=== PATIENT | female | born 1970 | race Caucasian/White ===

== ENCOUNTER → 2017-10-12 | Outpatient (CLI) | payer BC ==
[~2017-10-12] MED LIST: HYDR-79 PO; PROM25SU32 RC; SUMA100T3 PO
--- NOTE | 2017-10-12 16:31 | RAD ---
Pelvic ultrasound, 10/12/2017: History: Dysfunctional uterine bleeding Transabdominal and transvaginal scans were obtained. The uterus was best demonstrated on the transvaginal scans. It measures 9.2 x 5.7 x 4.9 cm. It is anteflexed. The central uterine echo complex measures 11 mm in greatest AP dimension. A small 1.6 cm hypoechoic myometrial nodule was seen anteriorly, suggesting a small uterine fibroid. The ovaries were difficult to visualize. They appear to be of normal size. No adnexal mass is seen. No free fluid is evident in the pelvis. IMPRESSION: 1. Mild nonspecific thickening of the central uterine echo complex. 2. Probable small uterine fibroid.
== END | disposition home or self-care (01) ==
LOC: US 13:05
PROVIDERS: ATTEND Nurse Practitioner Family
DX: N93.8 Other specified abnormal uterine and vaginal bleeding (principal)
CPT/HCPCS: 76830; 76856

== ENCOUNTER 2017-10-14 19:56 | Emergency (ER) | payer BC ==
[~2017-10-14] VITALS: Ht 165.1 cm; Wt 108.9 kg
[2017-10-14] MEDS ORDERED: VALPROATE SODIUM 500 MG in IV NORMAL SALINE 50ML 50 ML IV STA (20:17)
[2017-10-14] MEDS ORDERED: diphenhydrAMINE 50 MG/ML VIAL IV ONE (20:30)
[2017-10-14] MEDS ORDERED: ONDANSETRON PF 4 MG/2 ML VIAL. IV ONE (20:30)
[2017-10-14] MEDS ORDERED: IV RINGERS SOLUTION,LACTATED 1,000 ML IV SCH (20:30)
[2017-10-14] MEDS ORDERED: SUMAtriptan. 6 MG/0.5 ML VIAL SQ ONE (20:30)
--- NOTE | 2017-10-14 21:00 | ED.ADGEN ---
Past History Past Medical History: Migraines Adult General Chief Complaint Chief Complaint ".. I am having one of my typical migraine headaches.." HPI HPI Patient is a 47 year old female who presents with above hx and complaints of migraine. Patient is normally takes Tylenol or ibuprofen for her migraine headaches which resolved promptly. However tonight headache is been more persistent. No history of fever. No history immunosuppression. No history of travel. No history of trauma. No history of specific ill contacts. She does have some photophobia. Patient describes pain is much more severe than previous migraine headaches. Patient still has CT of her head. Patient states previously when headaches are this bad she has taken injections of Toradol IV and migraine headache cocktail's. Migraines sometimes appear to be associated with weather changes. Review of Systems Review of Systems Constitutional: Denies fever or chills [] Eyes: Denies change in visual acuity, redness, or eye pain []complaints of photophobia HENT: Denies nasal congestion or sore throat [] Respiratory: Denies cough or shortness of breath [] Cardiovascular: No additional information not addressed in HPI [] GI: Denies abdominal pain, nausea, vomiting, bloody stools or diarrhea [] : Denies dysuria or hematuria [] Musculoskeletal: Denies back pain or joint pain [] Integument: Denies rash or skin lesions [] Neurologic: Complaints of headache,. Denies focal weakness or sensory changes [] Endocrine: Denies polyuria or polydipsia [] All other systems were reviewed and found to be within normal limits, except as documented in this note. Family History Family History Migraines Current Medications Current Medications Current Medications Medications (Trade) Dose Ordered Sig/Fozia Start Time Stop Time Status Last Admin Dose Admin Diphenhydramine HCl (Benadryl) 50 mg 1X ONCE 10/14/17 20:30 10/14/17 20:31 DC 10/14/17 20:30 50 MG Lactated Ringer's 1,000 ml @ 1,000 mls/hr Q1H 10/14/17 20:30 10/14/17 21:29 DC 10/14/17 20:30 1,000 MLS/HR Morphine Sulfate (Morphine 10mg Syringe) 10 mg 1X ONCE 10/14/17 23:30 10/14/17 23:31 UNV Ondansetron HCl (Zofran) 8 mg 1X ONCE 10/14/17 20:30 10/14/17 20:31 DC 10/14/17 20:30 8 MG Promethazine HCl (Phenergan Im) 25 mg 1X ONCE 10/14/17 23:15 10/14/17 23:16 DC 10/14/17 23:25 25 MG Sumatriptan Succinate (Imitrex) 6 mg 1X ONCE 10/14/17 20:30 10/14/17 20:31 DC 10/14/17 20:30 6 MG Valproic Acid 500 mg/Sodium Chloride 55 ml @ 55 mls/hr 1X STAT 10/14/17 20:17 10/14/17 21:16 DC 10/14/17 20:17 55 MLS/HR See nursing for home medications Allergies Allergies Allergies Coded Allergies Type Severity Reaction Last Updated Verified No Known Drug Allergies 10/14/17 No Physical Exam Physical Exam Constitutional: moderately acute distress, non-toxic appearance. [] HENT: Normocephalic, atraumatic, bilateral external ears normal, oropharynx moist, no oral exudates, nose normal. [] Eyes: PERRLA, EOMI, conjunctiva normal, no discharge. [] Photophobia. No limbus injection. Fundus limited exam but appears to be benign Neck: Normal range of motion, no tenderness, supple, no stridor. [] Cardiovascular:Heart rate regular rhythm, no murmur [] Lungs & Thorax: Bilateral breath sounds equal at apexes with a few scattered wheezes on auscultation [] Abdomen: Bowel sounds normal, soft, no tenderness, no masses, no pulsatile masses. [] Skin: Warm, dry, no erythema, no rash. [] Back: No tenderness, no CVA tenderness. [] Extremities: No tenderness, no cyanosis, no clubbing, ROM intact, no edema. [] Neurologic: Alert and oriented X 3, normal motor function, normal sensory function, no focal deficits noted. DTRs are +2 patella and brachial. No drift. Finger to nose good. Knee Bolter equal. Psychologic: Affect anxious, judgement normal, mood depressed Current Patient Data Vital Signs Vital Signs Date Time Temp Pulse Resp B/P (MAP) Pulse Ox O2 Delivery O2 Flow Rate FiO2 10/14/17 23:30 59 20 147/60 (89) 93 Room Air 10/14/17 20:05 97.2 Lab Results Laboratory Tests Test 10/14/17 20:47 10/14/17 21:45 White Blood Count 10.5 x10^3/uL (4.0-11.0) Red Blood Count 4.89 x10^6/uL (3.50-5.40) Hemoglobin 14.6 g/dL (12.0-15.5) Hematocrit 42.0 % (36.0-47.0) Mean Corpuscular Volume 86 fL (79-100) Mean Corpuscular Hemoglobin 30 pg (25-35) Mean Corpuscular Hemoglobin Concent 35 g/dL (31-37) Red Cell Distribution Width 13.0 % (11.5-14.5) Platelet Count 314 x10^3/uL (140-400) Neutrophils (%) (Auto) 63 % (31-73) Lymphocytes (%) (Auto) 25 % (24-48) Monocytes (%) (Auto) 7 % (0-9) Eosinophils (%) (Auto) 5 % (0-3) H Basophils (%) (Auto) 1 % (0-3) Neutrophils # (Auto) 6.6 x10^3uL (1.8-7.7) Lymphocytes # (Auto) 2.6 x10^3/uL (1.0-4.8) Monocytes # (Auto) 0.7 x10^3/uL (0.0-1.1) Eosinophils # (Auto) 0.5 x10^3/uL (0.0-0.7) Basophils # (Auto) 0.1 x10^3/uL (0.0-0.2) Erythrocyte Sedimentation Rate 28 (0-25) H Prothrombin Time 9.8 SEC (9.4-11.4) Prothrombin Time INR 1.0 (0.9-1.1) PTT 24 SEC (23-33) Sodium Level 139 mmol/L (136-145) Potassium Level 3.4 mmol/L (3.5-5.1) L Chloride Level 102 mmol/L (98-107) Carbon Dioxide Level 28 mmol/L (21-32) Anion Gap 9 (6-14) Blood Urea Nitrogen 17 mg/dL (7-20) Creatinine 1.0 mg/dL (0.6-1.0) Estimated GFR (Cockcroft-Gault) 58.9 Glucose Level 124 mg/dL (70-99) H Calcium Level 9.3 mg/dL (8.5-10.1) C-Reactive Protein 6.7 mg/L (0-3.3) H Serum Test, Qualitative Negative (NEG) Ethyl Alcohol Level < 10 mg/dL (0-10) Urine Collection Type Unknown Urine Color Straw Urine Clarity Clear Urine pH 7.0 Urine Specific Kinde 1.015 Urine Protein Neg (NEG-TRACE) Urine Glucose (UA) Neg mg/dL (NEG) Urine Ketones (Stick) Neg mg/dL (NEG) Urine Blood Trace (NEG) Urine Nitrite Neg (NEG) Urine Bilirubin Neg (NEG) Urine Urobilinogen Dipstick 0.2 mg/dL (0.2 mg/dL) Urine Leukocyte Esterase Neg (NEG) Urine RBC Rare /HPF (0-2) Urine WBC Occ /HPF (0-4) Urine Squamous Epithelial Cells Occ /LPF Urine Bacteria 0 /HPF (0-FEW) Urine Opiates Screen Neg (NEG) Urine Methadone Screen Neg (NEG) Urine Barbiturates Neg (NEG) Urine Phencyclidine Screen Neg (NEG) Urine Amphetamine/Methamphetamine Neg (NEG) Urine Benzodiazepines Screen Neg (NEG) Urine Cocaine Screen Neg (NEG) Urine Cannabinoids Screen Neg (NEG) Urine Ethyl Alcohol Neg (NEG) EKG EKG [] Radiology/Procedures Radiology/Procedures My interpretation of CT head shows no shift, mass, edema, bleed, or fracture.[] Course & Med Decision Making Course & Med Decision Making Pertinent Labs and Imaging studies reviewed. (See chart for details). Discussed risks and benefits of spinal tap.. Patient currently declines spinal tap. Exhibits CAR capacity. Patient to follow-up with primary care. Patient follow-up with neurology. Patient take Imitrex 100 mg at the beginning of headache. Take no more than 200 mg in 24-hour period. If no response Tylenol and ibuprofen may take Phenergan 25 mg up 4 times a day with Benadryl 50 mg 4 times a day. Patient may also take Vicoprofen up to 4 times a day. Return if any concerns. Must follow up. [] Final Impression Final Impression 1. Migraine Headache[] 2. Mild elevation sed. and crp Problems: Dragon Disclaimer Dragon Disclaimer This electronic medical record was generated, in whole or in part, using a voice recognition dictation system. SHIVANI MCCONNELL MD Oct 14, 2017 21:00
[2017-10-14 21:12] LABS: BASO # 0.1 x10^3/uL (0.0-0.2); BASO % 1 % (0-3); EOS # 0.5 x10^3/uL (0.0-0.7); EOS % 5 % (0-3); HEMOGLOBIN 14.6 g/dL (12.0-15.5); LYMPH # 2.6 x10^3/uL (1.0-4.8); LYMPH % 25 % (24-48); MEAN CORPUSCULAR HEMOGLOBIN 30 pg (25-35); MEAN CORPUSCULAR HGB CONC 35 g/dL (31-37); MEAN CORPUSCULAR VOLUME 86 fL (79-100); MONO # 0.7 x10^3/uL (0.0-1.1); MONO % 7 % (0-9); NEUT # 6.6 x10^3uL (1.8-7.7); NEUT % 63 % (31-73); PLATELET COUNT 314 x10^3/uL (140-400); RED BLOOD COUNT 4.89 x10^6/uL (3.50-5.40); WHITE BLOOD COUNT 10.5 x10^3/uL (4.0-11.0)
--- NOTE | 2017-10-14 21:19 | RAD ---
Indication: Headache. TECHNIQUE: CT head without IV contrast COMPARISON: None FINDINGS: No pathologic extra-axial or intra-axial fluid collection. The ventricles and basal cisterns are within normal limits. No acute intracranial bleed. No focal loss of melo-white differentiation. Visualized orbits are within normal limits. No calvarial lesions. Visualized paranasal sinuses and mastoid air cells are clear. IMPRESSION: No acute intracranial process. Electronically signed by: Gianluca Pugh DO (10/14/2017 9:17 PM) [facility]
[2017-10-14 21:27] LABS: C REACTIVE PROTEIN 6.7 mg/L (0-3.3); CALCIUM 9.3 mg/dL (8.5-10.1); GFR 58.9; POTASSIUM 3.4 mmol/L (3.5-5.1)
[2017-10-14] MEDS ORDERED: IV NORMAL SALINE 50ML 50 ML ONE (21:29)
[2017-10-14] MEDS ORDERED: VALPROATE SODIUM 500 MG/5 ML VIAL IV ONE (21:29)
[2017-10-14 22:06] LABS: BARBITURATES NEG (NEG); BENZODIAZEPINES NEG (NEG); CANNABINOIDS NEG (NEG); COCAINE NEG (NEG); METHADONE NEG (NEG); OPIATES NEG (NEG); PHENCYCLIDINE NEG (NEG)
[2017-10-14 22:07] LABS: AMPHETAMINE/METHAMPHETAMINE NEG (NEG)
[2017-10-14 22:10] LABS: BILIRUBIN,URINE NEG (NEG); CLARITY,URINE CLEAR; COLOR,URINE STRAW; GLUCOSE,URINE NEG (NEG)
[2017-10-14 22:11] LABS: BACTERIA,URINE 0 /HPF (0-FEW); NITRITE,URINE NEG (NEG); RBC,URINE RARE /HPF (0-2); SQUAMOUS EPITHELIAL CELL,UR OCC /LPF; UROBILINOGEN,URINE 0.2 mg/dL (0.2 mg/dL); WBC,URINE OCC /HPF (0-4)
[2017-10-14 22:17] LABS: SEDIMENTATION RATE 28 (0-25)
[2017-10-14 22:43] LABS: PREG TEST PT QUAL NEGATIVE (NEG)
[2017-10-14] MEDS ORDERED: KETOROLAC 30 MG/ML VIAL. ONE (22:51)
[2017-10-14] MEDS ORDERED: PROMETHAZINE IM 25 MG/ML VIAL IM ONE (23:15)
[2017-10-14] MEDS ORDERED: MORPHINE SULFATE 10 MG/ML SYRINGE. ONE (23:19)
[2017-10-14] MEDS ORDERED: SUMA100T3 PO (23:20)
[2017-10-14] MEDS ORDERED: PROM25SU32 RC (23:20)
[2017-10-14] MEDS ORDERED: HYDR-79 PO (23:20)
[2017-10-14 23:30] VITALS: BP 147/60
[2017-10-14] MEDS ORDERED: MORPHINE SULFATE 10 MG/ML SYRINGE. SQ ONE ×2 (23:30→23:45)
== END 2017-10-14 23:34 | disposition home or self-care (01) ==
LOC: ER 19:56
DX: G43.909 Migraine, unspecified, not intractable, without status migrainosus (principal); R70.0 Elevated erythrocyte sedimentation rate; R79.82 Elevated C-reactive protein (CRP)
CPT/HCPCS: 36415; 70450; 80048; 80307; 81001; 84703; 85025; 85610; 85651; 85730; 86140; 96361; 96372; 96374; 96375; 99285; G0480; J1200; J2270; J2405; J2550; J3030; J3490; J7120; G0479

== ENCOUNTER 2017-11-11 04:37 | Emergency (ER) | payer BC ==
[~2017-11-11] VITALS: Ht 165.1 cm; Wt 108.9 kg
--- NOTE | 2017-11-11 04:41 | ED.ADGEN ---
Past History Past Medical History: Migraines Past Surgical History: No Surgical History Alcohol Use: Occasionally Drug Use: None Adult General Chief Complaint Chief Complaint ".. I having one my migraines.. I ve had a CT and MRI...and seeing the neurology at [facility]... " " Usually Benadryl, Toradol and Steroids work.. when I have migraine this bad..." " I dont want any " tryptans" meds.." HPI HPI Patient is a 47 year old female who presents with above hx and complaints migraine headache. Pt. states it is typical presentation for an exacerbation for her. Prior CT and MRI have been reportedly normal. Pt. follows with Neurology at [facility]. Pt. denies any fevers, travel, ill contacts and trauma. Pt. denies any hx of immunosuppression. Pt. has some photophobia and nausea. Pt. reports scalp pain mainly frontal area. Review of Systems Review of Systems Constitutional: Denies fever or chills [] Eyes: Denies change in visual acuity, redness, or eye pain []Complaints of photophobia HENT: Denies nasal congestion or sore throat [] Respiratory: Denies cough or shortness of breath [] Cardiovascular: No additional information not addressed in HPI [] GI: Denies abdominal pain, vomiting, bloody stools or diarrhea []Complaints of Nausea. : Denies dysuria or hematuria [] Musculoskeletal: Denies back pain or joint pain [] Integument: Denies rash or skin lesions [] Neurologic: complaints of headache,. Denies focal weakness or sensory changes [ ] Endocrine: Denies polyuria or polydipsia [] All other systems were reviewed and found to be within normal limits, except as documented in this note. Current Medications Current Medications Current Medications Medications (Trade) Dose Ordered Sig/Fozia Start Time Stop Time Status Last Admin Dose Admin Diphenhydramine HCl (Benadryl) 50 mg 1X ONCE 11/11/17 05:30 11/11/17 05:31 DC 11/11/17 05:42 50 MG Ketorolac Tromethamine (Toradol) 30 mg 1X ONCE 11/11/17 05:30 11/11/17 05:31 DC 11/11/17 05:46 30 MG Methylprednisolone Sodium Succinate (SOLU-Medrol 40MG VIAL) 40 mg 1X ONCE 11/11/17 05:30 11/11/17 05:31 DC 11/11/17 05:44 40 MG Oxycodone/ Acetaminophen (Percocet 5/325) 2 tab 1X ONCE 11/11/17 05:30 11/11/17 05:31 DC 11/11/17 05:41 2 TAB Promethazine HCl (Phenergan Im) 25 mg 1X ONCE 11/11/17 05:30 11/11/17 05:31 DC 11/11/17 05:48 25 MG Allergies Allergies Allergies Coded Allergies Type Severity Reaction Last Updated Verified No Known Drug Allergies 10/14/17 No Physical Exam Physical Exam Constitutional: Well developed, well nourished, no acute distress, non-toxic appearance. [] HENT: Normocephalic, atraumatic, bilateral external ears normal, oropharynx moist, no oral exudates, nose normal. [] Eyes: PERRLA, EOMI, conjunctiva normal, no discharge. [] Neck: Normal range of motion, no tenderness, supple, no stridor. [] Cardiovascular:Heart rate regular rhythm, no murmur [] Lungs & Thorax: Bilateral breath sounds clear to auscultation [] Abdomen: Bowel sounds normal, soft, no tenderness, no masses, no pulsatile masses. [] Skin: Warm, dry, no erythema, no rash. [] Back: No tenderness, no CVA tenderness. [] Extremities: No tenderness, no cyanosis, no clubbing, ROM intact, no edema. [] Neurologic: Alert and oriented X 3, normal motor function, normal sensory function, no focal deficits noted. [] Psychologic: Affect normal, judgement normal, mood normal. [] Current Patient Data Vital Signs Vital Signs Date Time Temp Pulse Resp B/P (MAP) Pulse Ox O2 Delivery O2 Flow Rate FiO2 11/11/17 06:44 59 20 146/85 (105) 95 Room Air 11/11/17 04:50 98.1 Lab Results Laboratory Tests Test 11/11/17 05:30 White Blood Count 9.3 x10^3/uL (4.0-11.0) Red Blood Count 4.85 x10^6/uL (3.50-5.40) Hemoglobin 14.6 g/dL (12.0-15.5) Hematocrit 42.0 % (36.0-47.0) Mean Corpuscular Volume 87 fL (79-100) Mean Corpuscular Hemoglobin 30 pg (25-35) Mean Corpuscular Hemoglobin Concent 35 g/dL (31-37) Red Cell Distribution Width 12.9 % (11.5-14.5) Platelet Count 311 x10^3/uL (140-400) Neutrophils (%) (Auto) 60 % (31-73) Lymphocytes (%) (Auto) 29 % (24-48) Monocytes (%) (Auto) 7 % (0-9) Eosinophils (%) (Auto) 4 % (0-3) H Basophils (%) (Auto) 1 % (0-3) Neutrophils # (Auto) 5.5 x10^3uL (1.8-7.7) Lymphocytes # (Auto) 2.7 x10^3/uL (1.0-4.8) Monocytes # (Auto) 0.7 x10^3/uL (0.0-1.1) Eosinophils # (Auto) 0.4 x10^3/uL (0.0-0.7) Basophils # (Auto) 0.1 x10^3/uL (0.0-0.2) Prothrombin Time 9.9 SEC (9.4-11.4) Prothrombin Time INR 1.0 (0.9-1.1) PTT 25 SEC (23-33) Sodium Level 141 mmol/L (136-145) Potassium Level 3.8 mmol/L (3.5-5.1) Chloride Level 104 mmol/L (98-107) Carbon Dioxide Level 28 mmol/L (21-32) Anion Gap 9 (6-14) Blood Urea Nitrogen 14 mg/dL (7-20) Creatinine 0.9 mg/dL (0.6-1.0) Estimated GFR (Cockcroft-Gault) 66.5 Glucose Level 132 mg/dL (70-99) H Calcium Level 8.4 mg/dL (8.5-10.1) L EKG EKG [] Radiology/Procedures Radiology/Procedures Pt. declines CT- pt. exhibit [facility] capacity MRI - [place] 11-06-2017- No acute findings. Course & Med Decision Making Course & Med Decision Making Pertinent Labs and Imaging studies reviewed. (See chart for details) Pt. to follow up with primary and neurology. Take home meds as previously directed for migraine exacerbations. Return if any concerns. Pt. pain resolve at time of discharge. Ambulatory without problems. [] Final Impression Final Impression 1. Migraine headache[] Problems: Dragon Disclaimer Dragon Disclaimer This electronic medical record was generated, in whole or in part, using a voice recognition dictation system. SHIVANI MCCONNELL MD Nov 11, 2017 04:41
[2017-11-11] MEDS ORDERED: diphenhydrAMINE 50 MG/ML VIAL IVP ONE (05:30)
[2017-11-11] MEDS ORDERED: KETOROLAC 30 MG/ML VIAL. IV ONE (05:30)
[2017-11-11] MEDS ORDERED: oxyCODONE/APAP 5/325 1 TAB TABLET PO ONE (05:30)
[2017-11-11] MEDS ORDERED: PROMETHAZINE IM 25 MG/ML VIAL IM ONE (05:30)
[2017-11-11] MEDS ORDERED: methylPREDNISolone SOD SUCC PF 40 MG/ML VIAL. IV ONE (05:30)
[2017-11-11 05:57] LABS: BASO # 0.1 x10^3/uL (0.0-0.2); BASO % 1 % (0-3); EOS # 0.4 x10^3/uL (0.0-0.7); EOS % 4 % (0-3); HEMOGLOBIN 14.6 g/dL (12.0-15.5); LYMPH # 2.7 x10^3/uL (1.0-4.8); LYMPH % 29 % (24-48); MEAN CORPUSCULAR HEMOGLOBIN 30 pg (25-35); MEAN CORPUSCULAR HGB CONC 35 g/dL (31-37); MEAN CORPUSCULAR VOLUME 87 fL (79-100); MONO # 0.7 x10^3/uL (0.0-1.1); MONO % 7 % (0-9); NEUT # 5.5 x10^3uL (1.8-7.7); NEUT % 60 % (31-73); PLATELET COUNT 311 x10^3/uL (140-400); RED BLOOD COUNT 4.85 x10^6/uL (3.50-5.40); RED CELL DISTRIBUTION WIDTH 12.9 % (11.5-14.5); WHITE BLOOD COUNT 9.3 x10^3/uL (4.0-11.0)
[2017-11-11 06:27] LABS: CALCIUM 8.4 mg/dL (8.5-10.1); CREATININE 0.9 mg/dL (0.6-1.0); GFR 66.5; POTASSIUM 3.8 mmol/L (3.5-5.1)
[2017-11-11 06:44] VITALS: BP 146/85
== END 2017-11-11 06:44 | disposition home or self-care (01) ==
LOC: ER 04:37
DX: G43.909 Migraine, unspecified, not intractable, without status migrainosus (principal)
CPT/HCPCS: 36415; 80048; 85025; 85610; 85730; 96372; 96374; 96375; 99284; J1200; J1885; J2550; J2920

== ENCOUNTER 2017-11-28 18:31 | Emergency (ER) | payer BC ==
[~2017-11-28] VITALS: Ht 165.1 cm; Wt 111.3 kg
[2017-11-28] MEDS ORDERED: IV NORMAL SALINE 1,000ML 1,000 ML IV ONE (19:00)
[2017-11-28] MEDS ORDERED: DEXAMETHASONE SOD PHOS 10 MG/ML VIAL IV ONE (19:15)
[2017-11-28] MEDS ORDERED: KETOROLAC 30 MG/ML VIAL. IV ONE (19:15)
[2017-11-28] MEDS ORDERED: METOCLOPRAMIDE HCL 10 MG/2 ML VIAL. IV ONE (19:15)
[2017-11-28] MEDS ORDERED: diphenhydrAMINE 50 MG/ML VIAL IVP ONE (19:15)
[2017-11-28 20:05] VITALS: BP 122/76
--- NOTE | 2017-11-28 20:07 | PHYS DOC ---
Past History Past Medical History: Migraines Past Surgical History: No Surgical History Alcohol Use: Occasionally Drug Use: None Adult General Chief Complaint Chief Complaint: HEADACHE HPI HPI 47-year-old female with history of migraines now are resents to the emergency department complaining of gradual onset of headache typical for her. Patient has chronic migraines. This headache is unremarkable. No fevers chills sweats or shaking chills. She reports that she did have a lumbar puncture yesterday but comments that this headache is typical for her and not positional. It is not worsened at all by sitting up from lying down. No other complaints Review of Systems Review of Systems Constitutional: Denies fever or chills [] Eyes: Denies change in visual acuity, redness, or eye pain [] HENT: Denies nasal congestion or sore throat [] Respiratory: Denies cough or shortness of breath [] Cardiovascular: No additional information not addressed in HPI [] GI: Denies abdominal pain, nausea, vomiting, bloody stools or diarrhea [] : Denies dysuria or hematuria [] Musculoskeletal: Denies back pain or joint pain [] Integument: Denies rash or skin lesions [] Neurologic: Denies headache, focal weakness or sensory changes [] Endocrine: Denies polyuria or polydipsia [] All other systems were reviewed and found to be within normal limits, except as documented in this note. Current Medications Current Medications Current Medications Medications (Trade) Dose Ordered Sig/Fozia Start Time Stop Time Status Last Admin Dose Admin Dexamethasone Sodium Phosphate (Decadron) 10 mg 1X ONCE 11/28/17 19:15 11/28/17 19:16 DC 11/28/17 19:21 10 MG Diphenhydramine HCl (Benadryl) 25 mg 1X ONCE 11/28/17 19:15 11/28/17 19:16 DC 11/28/17 19:24 25 MG Ketorolac Tromethamine (Toradol) 30 mg 1X ONCE 11/28/17 19:15 11/28/17 19:16 DC 11/28/17 19:23 30 MG Metoclopramide HCl (Reglan Vial) 10 mg 1X ONCE 11/28/17 19:15 11/28/17 19:16 DC 11/28/17 19:21 10 MG Sodium Chloride 1,000 ml @ 1,000 mls/hr 1X ONCE 11/28/17 19:00 5/1/18 19:59 DC 11/28/17 19:20 1,000 MLS/HR Allergies Allergies Allergies Coded Allergies Type Severity Reaction Last Updated Verified No Known Drug Allergies 10/14/17 No Physical Exam Physical Exam Well-appearing patient mild photophobia full neuro exam benign remainder of exam unremarkable as well Constitutional: Well developed, well nourished, no acute distress, non-toxic appearance. [] HENT: Normocephalic, atraumatic, bilateral external ears normal, oropharynx moist, no oral exudates, nose normal. [] Eyes: PERRLA, EOMI, conjunctiva normal, no discharge. [] Neck: Normal range of motion, no tenderness, supple, no stridor. [] Cardiovascular:Heart rate regular rhythm, no murmur [] Lungs & Thorax: Bilateral breath sounds clear to auscultation [] Abdomen: Bowel sounds normal, soft, no tenderness, no masses, no pulsatile masses. [] Skin: Warm, dry, no erythema, no rash. [] Back: No tenderness, no CVA tenderness. [] Extremities: No tenderness, no cyanosis, no clubbing, ROM intact, no edema. [] Neurologic: Alert and oriented X 3, normal motor function, normal sensory function, no focal deficits noted. [] Psychologic: Affect normal, judgement normal, mood normal. [] Current Patient Data Vital Signs Vital Signs Date Time Temp Pulse Resp B/P (MAP) Pulse Ox O2 Delivery O2 Flow Rate FiO2 11/28/17 18:40 98.3 66 22 96 Room Air EKG EKG [] Radiology/Procedures Radiology/Procedures [] Course & Med Decision Making Course & Med Decision Making Pertinent Labs and Imaging studies reviewed. (See chart for details) Signs and symptoms consistent with gradual onset of migraine headache typical for patient. Patient feels dramatically improved after treatment. Supple neck no evidence of meningismus. No further workup or treatment indicated at this time patient agrees with outpatient follow-up and strict return precautions given [] Dragon Disclaimer Dragon Disclaimer This electronic medical record was generated, in whole or in part, using a voice recognition dictation system. Departure Departure: Impression: Primary Impression: Migraine Disposition: 01 HOME, SELF-CARE Condition: IMPROVED Referrals: FRANCISCA WOOD (PCP) Patient Instructions: Migraine Headache Additional Instructions: You've been suffering from a migraine headache. At home take ibuprofen 800 mg every 6 hours as needed. Use Tylenol in addition to this if he still have persistent pain. Consider Benadryl [id number] 1-2 pills every 4-6 hours if you find this to be helpful in the setting of your headaches. Rest and drink plenty of fluids. Follow-up with your doctor tomorrow and return immediately for new severe worsening symptoms KAIDEN MTZ MD November 28, 2017 20:07
== END 2017-11-28 20:14 | disposition home or self-care (01) ==
LOC: ER 18:31
DX: G43.909 Migraine, unspecified, not intractable, without status migrainosus (principal)
CPT/HCPCS: 96374; 96375; 99284; J1100; J1200; J1885; J2765; J7030

== ENCOUNTER 2019-07-10 13:03 | Emergency (ER) | payer BC ==
[~2019-07-10] VITALS: Ht 165.1 cm; Wt 108.9 kg
[~2019-07-10 13:03] MED LIST changes: +HYDR-1179 PO; -HYDR-79 PO
[2019-07-10] MEDS ORDERED: diphenhydrAMINE 50 MG/ML VIAL ONE (13:26)
[2019-07-10] MEDS ORDERED: PROCHLORPERAZINE 10 MG/2 ML VIAL. ONE (13:26)
[2019-07-10] MEDS ORDERED: KETOROLAC 30 MG/ML VIAL. ONE (13:26)
[2019-07-10] MEDS ORDERED: diphenhydrAMINE 50 MG/ML VIAL IVP ONE (13:30)
[2019-07-10] MEDS ORDERED: KETOROLAC 30 MG/ML VIAL. IVP ONE (13:30)
[2019-07-10] MEDS ORDERED: PROCHLORPERAZINE 10 MG/2 ML VIAL. IV ONE (13:30)
[2019-07-10] MEDS ORDERED: IV NORMAL SALINE 1,000ML 1,000 ML IV ONE (13:30)
--- NOTE | 2019-07-10 13:35 | PHYS DOC ---
Past History Past Medical History: Hypothyroid, Kidney Stones, Migraines Past Surgical History: , Tonsillectomy Additional Past Surgical Histo: breast reduction; bladder lift; bilat foot surgery; bilat carpal tunnel Alcohol Use: Occasionally Drug Use: None Adult General Chief Complaint Chief Complaint: HEADACHE HPI HPI Patient is a 49-year-old female who presents to the emergency department for evaluation. She states that this morning at 5 AM when she awakened, she developed a headache, and her occipital area, which is typical of her prior migraine headaches. She states that she has had migraine headaches for quite a while, and she was finally diagnosed with pseudotumor cerebri by her neurologist, Dr. Freeman, at [facility]. She has been taking Topamax and this is old might since then and reports that she has had a significantly decreased frequency of her migraines. However, she states she did develop a headache this morning, she took some Tylenol without improvement in her symptoms. She denies any vision changes, numbness, weakness, fevers, neck stiffness or pain. She does report photophobia. The headache is exactly the same as her prior migraine headaches, and is no different than her prior headaches. There are no alleviating or exacerbating factors to her symptoms otherwise. Review of Systems Review of Systems Constitutional: Denies fever or chills [] Eyes: Denies change in visual acuity, redness, or eye pain [] HENT: Denies nasal congestion or sore throat [] Respiratory: Denies cough or shortness of breath [] Cardiovascular: The patient denies any shortness of breath, chest pain, palpitations, or orthopnea [] GI: Denies abdominal pain, nausea, vomiting, bloody stools or diarrhea [] : Denies dysuria or hematuria [] Musculoskeletal: Denies back pain or joint pain [] Integument: Denies rash or skin lesions [] Neurologic: Denies focal weakness or sensory changes [] Endocrine: Denies polyuria or polydipsia [] All other systems were reviewed and found to be within normal limits, except as documented in this note. Current Medications Current Medications Current Medications Medications (Trade) Dose Ordered Sig/Fozia Start Time Stop Time Status Last Admin Dose Admin Diphenhydramine HCl (Benadryl) 50 mg STK-MED ONCE 07/10/19 13:26 07/10/19 13:26 DC Ketorolac Tromethamine (Toradol 30mg Vial) 30 mg STK-MED ONCE 07/10/19 13:26 07/10/19 13:27 DC Prochlorperazine Edisylate (Compazine) 10 mg STK-MED ONCE 07/10/19 13:26 07/10/19 13:27 DC Sodium Chloride 1,000 ml @ 1,000 mls/hr 1X ONCE 07/10/19 13:30 07/10/19 14:29 Allergies Allergies Allergies Coded Allergies Type Severity Reaction Last Updated Verified No Known Drug Allergies 07/10/19 No Physical Exam Physical Exam PHYSICAL EXAM: CONSTITUTIONAL: Well developed, well nourished HEAD: normocephalic, atraumatic EENT: PERRL, EOMI. Conjunctivae normal color, sclerae non-icteric; moist mucous membranes. NECK: Supple, non-tender; no meningismus. LUNGS: Lungs CTA, breathing even and unlabored. Normal air movement. HEART: Regular rate and rhythm, no murmur CHEST: No deformity; non-tender ABDOMEN: The abdomen is soft, and non-tender, no masses or bruits. EXTREM: Normal ROM; no deformity, no calf tenderness. Normal pulses palpable in all extremities. There is no pedal edema. SKIN: No rash; no diaphoresis NEURO: Alert; normal speech and cognition; CN's grossly intact; strength grossly intact without focal deficit. BACK: No CVA TTP. Current Patient Data Vital Signs Vital Signs Date Time Temp Pulse Resp B/P (MAP) Pulse Ox O2 Delivery O2 Flow Rate FiO2 07/10/19 13:09 97.7 59 18 97 EKG EKG [] Radiology/Procedures Radiology/Procedures [] Course & Med Decision Making Course & Med Decision Making 2:30 PM: The patient's condition remained stable, her headache is feeling significantly better at this time. I discussed home care plan, the need for follow-up with her neurologist and return precautions. Adryon Disclaimer Kathrin Disclaimer This electronic medical record was generated, in whole or in part, using a voice recognition dictation system. Departure Departure: Impression: Primary Impression: Migraine headache Disposition: 01 HOME, SELF-CARE Condition: STABLE Referrals: FRANCISCA WOOD (PCP) Patient Instructions: Migraine Headache QUINCY MELENDEZ MD Jul 10, 2019 13:35
[2019-07-10 14:35] VITALS: BP 113/65
== END 2019-07-10 14:52 | disposition home or self-care (01) ==
LOC: ER 13:03
DX: G43.909 Migraine, unspecified, not intractable, without status migrainosus (principal); E03.9 Hypothyroidism, unspecified; Z87.442 Personal history of urinary calculi
CPT/HCPCS: 96374; 96375; 99284; J0780; J1200; J1885; J7030

== ENCOUNTER 2019-08-31 12:12 | Emergency (ER) | payer BC ==
[~2019-08-31] VITALS: Ht 165.1 cm; Wt 109.0 kg
[2019-08-31] MEDS ORDERED: IV NORMAL SALINE 1,000ML 1,000 ML IV ONE (12:30)
[2019-08-31 12:38] VITALS: BP 134/86
[2019-08-31 12:48] LABS: BASO % 0 % (0-3); EOS # 0.1 x10^3/uL (0.0-0.7); EOS % 1 % (0-3); HEMATOCRIT 47.4 % (36.0-47.0); HEMOGLOBIN 15.8 g/dL (12.0-15.5); LYMPH # 1.2 x10^3/uL (1.0-4.8); LYMPH % 12 % (24-48); MEAN CORPUSCULAR HEMOGLOBIN 30 pg (25-35); MEAN CORPUSCULAR HGB CONC 33 g/dL (31-37); MEAN CORPUSCULAR VOLUME 90 fL (79-100); MONO # 1.3 x10^3/uL (0.0-1.1); MONO % 13 % (0-9); NEUT # 7.6 x10^3uL (1.8-7.7); NEUT % 74 % (31-73); PLATELET COUNT 326 x10^3/uL (140-400); RED BLOOD COUNT 5.27 x10^6/uL (3.50-5.40); RED CELL DISTRIBUTION WIDTH 13.6 % (11.5-14.5); WHITE BLOOD COUNT 10.3 x10^3/uL (4.0-11.0)
--- NOTE | 2019-08-31 12:53 | PHYS DOC ---
Past History Past Medical History: Hypothyroid, Kidney Stones, Migraines Past Surgical History: , Tonsillectomy Additional Past Surgical Histo: breast reduction; bladder lift; bilat foot surgery; bilat carpal tunnel Alcohol Use: Occasionally Drug Use: None Adult General Chief Complaint Chief Complaint: Chest Pain HPI HPI 49-year-old female presents with chest pain. She states this started last night. It is much worse with deep inspiration. It also hurts to cough. I asked her she been coughing a lot lately and she told me no, but she told the nurse that she has had a cough for a few days. She describes the pain as a central scabbing. At its worst is 8 out of 10. If she is sitting still and not moving or coughing, it is 3 out of 10. She has no cardiac history. She does have a history of diabetes. She's had no recent changes to her medications. She denies fever or chills. Review of Systems Review of Systems Constitutional: Denies fever or chills [] Eyes: Denies change in visual acuity, redness, or eye pain [] HENT: Denies nasal congestion or sore throat [] Respiratory: Cough without shortness of breath [] Cardiovascular: No additional information not addressed in HPI [] GI: Denies abdominal pain, nausea, vomiting, bloody stools or diarrhea [] : Denies dysuria or hematuria [] Musculoskeletal: Denies back pain or joint pain [] Integument: Denies rash or skin lesions [] Neurologic: Denies headache, focal weakness or sensory changes [] Endocrine: Denies polyuria or polydipsia [] All other systems were reviewed and found to be within normal limits, except as documented in this note. Current Medications Current Medications Current Medications Medications (Trade) Dose Ordered Sig/Fozia Start Time Stop Time Status Last Admin Dose Admin Sodium Chloride 1,000 ml @ 1,000 mls/hr 1X ONCE 08/31/19 12:30 08/31/19 13:29 08/31/19 12:31 1,000 MLS/HR Allergies Allergies Allergies Coded Allergies Type Severity Reaction Last Updated Verified No Known Drug Allergies 07/10/19 No Physical Exam Physical Exam Constitutional: Well developed, well nourished, no acute distress, non-toxic appearance. [] HENT: Normocephalic, atraumatic, bilateral external ears normal, oropharynx moist, no oral exudates, nose normal. [] Eyes: PERRLA, EOMI, conjunctiva normal, no discharge. [] Neck: Normal range of motion, no tenderness, supple, no stridor. [] Cardiovascular:Heart rate regular rhythm, no murmur [] Lungs & Thorax: Bilateral breath sounds clear to auscultation [] Abdomen: Bowel sounds normal, soft, no tenderness, no masses, no pulsatile masses. [] Skin: Warm, dry, no erythema, no rash. [] Back: No tenderness, no CVA tenderness. [] Extremities: No tenderness, no cyanosis, no clubbing, ROM intact, no edema. [] Neurologic: Alert and oriented X 3, normal motor function, normal sensory function, no focal deficits noted. [] Psychologic: Affect normal, judgement normal, mood normal. [] EKG EKG Sinus rhythm, rate 57, normal axis, no ST elevations or depressions. Radiology/Procedures Radiology/Procedures [] Impressions: EXAM: Chest, 2 views. HISTORY: Cough. Shortness of breath. COMPARISON: None. FINDINGS: 2 views of chest are obtained. No infiltrate, pleural effusion or pneumothorax. The heart is normal in size. IMPRESSION: No acute pulmonary finding. Electronically signed by: Itzel Wilkins MD (08/31/2019 12:50 PM) [facility] DICTATED AND SIGNED BY: ITZEL WILKINS MD DATE: 08/31/19 1250 CC: HERMINIA NAIDU DO; FRANCISCA WOOD LOG HOOKER-C ~ Course & Med Decision Making Course & Med Decision Making Pertinent Labs and Imaging studies reviewed. (See chart for details) Patient's EKG is unremarkable. Her chest x-ray is unremarkable. During her stay in the emergency room, the patient did have some coughing with whitish yellow sputum production. No fever. Her troponin is negative. Her other labs are unremarkable. She is negative for influenza. I believe the patient has a viral URI with cough. The chest discomfort seems to be secondary to the coughing. [] Dragon Disclaimer Dragon Disclaimer This electronic medical record was generated, in whole or in part, using a voice recognition dictation system. The HEART Score for CP Pts HEART Score for Chest Pain: HEART Score for Chest Pain Response (Comments) Value History Slighlty/Non-Suspicious 0 ECG Normal 0 Age >45 - < 65 1 Risk Factors 1 or 2 Risk Factors 1 Troponin < Normal Limit 0 Total 2 Risk Factors: Risk Factors: DM, Current or recent (<one month) smoker, HTN, HLP, family history of CAD, obesity. Risk Scores: Score 0 - 3: 2.5% MACE over next 6 weeks - Discharge Home Score 4 - 6: 20.3% MACE over next 6 weeks - Admit for Clinical Observation Score 7 - 10: 72.7% MACE over next 6 weeks - Early Invasive Strategies Departure Departure: Impression: Primary Impression: Viral URI with cough Additional Impression: Chest pain Disposition: HOME, SELF-CARE Condition: STABLE Referrals: FRANCISCA WOOD (PCP) Patient Instructions: Chest Pain (Nonspecific), [id number], Upper Respiratory Infection, Adult, [id number] Problem Qualifiers Additional Impression: Chest pain Chest pain type: chest pain on breathing Qualified Codes: R07.1 - Chest pain on breathing HERMINIA NAIDU DO Aug 31, 2019 12:53
[2019-08-31 12:57] LABS: CREATININE 0.9 mg/dL (0.6-1.0); POTASSIUM 3.7 mmol/L (3.5-5.1)
[2019-08-31 13:03] LABS: ALBUMIN 3.7 g/dL (3.4-5.0); ALBUMIN/GLOBULIN RATIO 0.9 (1.0-1.7); TOTAL BILIRUBIN 0.5 mg/dL (0.2-1.0); TOTAL PROTEIN 7.9 g/dL (6.4-8.2)
[2019-08-31 13:22] LABS: INFLUENZA A PATIENT NEGATIVE (NEGATIVE); INFLUENZA B PATIENT NEGATIVE (NEGATIVE)
--- NOTE | 2019-08-31 14:07 | EKG ---
[address] [address] Test Date: 2019-08-31 Test Time: 12:48:05 Pat Name: CHING WOOD Department: Room: Gender: F Studio Owner: : [id number] Requested By: HERMINIA NAIDU Order Number: [id number] Reading MD: Measurements Intervals Kamuela Rate: 57 P: 31 AR: 156 QRS: 25 QRSD: 82 T: 14 QT: 406 QTc: 398 Interpretive Statements SINUS RHYTHM NO SPECIFIC ECG ABNORMALITIES RI6.01 No previous ECG available for comparison
== END 2019-08-31 13:33 | disposition home or self-care (01) ==
LOC: ER 12:12
DX: J06.9 Acute upper respiratory infection, unspecified (principal); R07.1 Chest pain on breathing; B97.89 Other viral agents as the cause of diseases classified elsewhere; E03.9 Hypothyroidism, unspecified; G43.909 Migraine, unspecified, not intractable, without status migrainosus; Z87.442 Personal history of urinary calculi
CPT/HCPCS: 36415; 71046; 80053; 84484; 85025; 87804; 93005; 99285-25; J7030

== ENCOUNTER 2021-03-21 05:55 | Emergency (ER) | payer BC ==
[~2021-03-21] VITALS: Ht 170.2 cm; Wt 110.0 kg
--- NOTE | 2021-03-21 06:37 | PHYS DOC ---
Past History Past Medical History: Hypothyroid, Kidney Stones, Migraines Past Surgical History: , Tonsillectomy Additional Past Surgical Histo: breast reduction; bladder lift; bilat foot surgery; bilat carpal tunnel Alcohol Use: Occasionally Drug Use: None Adult General Chief Complaint Chief Complaint: HEADACHE HPI HPI Patient is a 50-year-old female presenting for migraine headache. This is an acute on chronic problem for patient. She was last seen at our ER for similar complaints approximately 2 years ago. She is well-established with neurologist at [facility] who has been managing patient's case in outpatient setting. 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 Reports she started having typical prodromal symptoms yesterday evening that progressed into a full-fledged migraine mostly focal to her posterior occiput without any motor/sensory/neuro deficits. She took her home Topamax and other abortive medication prescribed by neurologist without significant relief prompting her to come in for evaluation. She is requesting "what ever they gave me last time" as it fully resolved her migraine Review of Systems Review of Systems Fourteen body systems of review of systems have been reviewed. See HPI for pertinent positives and negative responses, other ordaz all other systems are negative, non-pertinent or non-contributory Allergies Allergies Allergies Coded Allergies Type Severity Reaction Last Updated Verified No Known Drug Allergies 07/10/19 No Physical Exam Physical Exam Constitutional: Well developed, well nourished, no acute distress, non-toxic appearance. Appears uncomfortable and in pain HENT: Normocephalic, atraumatic, bilateral external ears normal, oropharynx moist, no oral exudates, nose normal. Eyes: PERRLA, EOMI, conjunctiva normal, no discharge. Neck: Normal range of motion, no tenderness, supple, no stridor. No nuchal rigidity or meningeal signs Cardiovascular: Heart rate regular, sinus rhythm, no murmurs rubs or gallops Lungs & Thorax: Bilateral breath sounds clear to auscultation Abdomen: Bowel sounds normal, soft, no tenderness, no masses, no pulsatile masses. Nonsurgical abdomen, no peritoneal signs Skin: Warm, dry, no erythema, no rash. Back: No tenderness, no CVA tenderness. Extremities: No tenderness, no cyanosis, no clubbing, ROM intact, no edema. Neurologic: Alert and oriented X 3, cranial nerves II through XII intact, normal motor & sensory function, no focal deficits noted. Psychologic: Agitated and unpleasant Current Patient Data Vital Signs Vital Signs Date Time Temp Pulse Resp B/P (MAP) Pulse Ox O2 Delivery O2 Flow Rate FiO2 03/21/21 06:28 97.8 60 20 99 EKG EKG [] Radiology/Procedures Radiology/Procedures [] Heart Score C/O Chest Pain: No Risk Factors: Risk Factors: DM, Current or recent (<one month) smoker, HTN, HLP, family history of CAD, obesity. Risk Scores: Risk Factors: DM, Current or recent (<one month) smoker, HTN, HLP, family hi story of CAD, obesity. Course & Med Decision Making Course & Med Decision Making ABCs unremarkable. HPI and physical examination nonconcerning for any emergent or surgical issues. No motor/sensory/neuro deficits. Symptoms consistent with prior migraine, no indication for further diagnostic work-up such as imaging and/or lumbar puncture etc. IV fluids, Compazine, Benadryl, Tylenol and Toradol administered with near complete resolution of patient's symptoms after repeat evaluation. Patient established with neurologist, I advised her to contact the neurologist this upcoming week to review ER visit and need for close outpatient follow-up as deemed necessary. Strict return precautions were discussed with good understanding by patient, all questions and concerns addressed prior to ER departure Dragon Disclaimer Dragon Disclaimer This electronic medical record was generated, in whole or in part, using a voice recognition dictation system. Departure Departure: Impression: Primary Impression: Migraine headache Disposition: HOME / SELF CARE / HOMELESS Condition: IMPROVED Referrals: ZOHAIB LEE APRN (PCP) Patient Instructions: Migraine Headache Additional Instructions: You were seen for a headache. Your symptoms improved with Tylenol, and NSAID, Benadryl, an anti-nausea medication and gentle fluid hydration. You should return to the ED if you develop worsening pain, vision change, numbness, tingl ing, weakness, vomiting, fever, neck pain, or any other new or concerning symptoms. You need to follow up with your primary care physician and your neurologist for continuity of care. IAN MOMIN DO Mar 21, 2021 06:37
[2021-03-21] MEDS ORDERED: KETOROLAC 15 MG/ML VIAL. IVP ONE (06:45)
[2021-03-21] MEDS ORDERED: diphenhydrAMINE 50 MG/ML VIAL IVP ONE (06:45)
[2021-03-21] MEDS ORDERED: PROCHLORPERAZINE 10 MG/2 ML VIAL. IM ONE (06:45)
[2021-03-21] MEDS ORDERED: IV NORMAL SALINE 1,000ML 1,000 ML IV ONE (06:45)
[2021-03-21] MEDS ORDERED: ACETAMINOPHEN 500 MG TABLET PO ONE (06:45)
[2021-03-21 08:15] VITALS: BP 142/81
== END 2021-03-21 08:15 | disposition home or self-care (01) ==
LOC: ER 05:55
DX: G43.909 Migraine, unspecified, not intractable, without status migrainosus (principal); Z87.442 Personal history of urinary calculi
CPT/HCPCS: 96361; 96372; 96374; 96375; 99284; J0780; J1200; J1885; J7030

== ENCOUNTER 2021-05-28 07:16 | Emergency (ER) | payer BC ==
[~2021-05-28] VITALS: Ht 162.6 cm; Wt 108.0 kg
--- NOTE | 2021-05-28 07:37 | PHYS DOC ---
Past History Past Medical History: Hypothyroid, Kidney Stones, Migraines Past Surgical History: , Tonsillectomy Additional Past Surgical Histo: breast reduction; bladder lift; bilat foot surgery; bilat carpal tunnel Alcohol Use: Occasionally Drug Use: None General Adult EDM: Chief Complaint: HEADACHE HPI: HPI: 51-year-old female presents with headache. Patient has had a low level headache all week but it got significantly worse last night. She has been trying Tylenol and ibuprofen without relief. The headache is a pressure sensation and it feels like her previous headaches. She has a history of pseudotumor cerebri. Migraine cocktails have helped in the past. She is hoping that will help again today. She is sensitive to light. She denies fever or chills. Review of Systems: Review of Systems: Constitutional: Denies fever or chills Eyes: Denies change in visual acuity HENT: Denies nasal congestion or sore throat Respiratory: Denies cough or shortness of breath Cardiovascular: Denies chest pain or edema GI: Denies abdominal pain, nausea, vomiting, bloody stools or diarrhea : Denies dysuria Musculoskeletal: Denies back pain or joint pain Integument: Denies rash Neurologic: Headache. Denies focal weakness or sensory changes Endocrine: Denies polyuria or polydipsia Lymphatic: Denies swollen glands Psychiatric: Denies depression or anxiety Current Medications: Current Meds: Current Medications Medications (Trade) Dose Ordered Sig/Fozia Start Time Stop Time Status Last Admin Dose Admin Diphenhydramine HCl (Benadryl) 25 mg 1X ONCE 05/28/21 07:45 05/28/21 07:46 UNV Ketorolac Tromethamine (Toradol 30mg Vial) 30 mg 1X ONCE 05/28/21 07:45 05/28/21 07:46 UNV Metoclopramide HCl (Reglan Vial) 10 mg 1X ONCE 05/28/21 07:45 05/28/21 07:46 UNV Sodium Chloride 1,000 ml @ 1,000 mls/hr 1X ONCE 05/28/21 07:45 05/28/21 08:44 UNV Allergies: Allergies: Allergies Coded Allergies Type Severity Reaction Last Updated Verified No Known Drug Allergies 05/28/21 No Physical Exam: PE: Constitutional: Well developed, well nourished, obese, no acute distress, non- toxic appearance. [] HENT: Normocephalic, atraumatic, bilateral external ears normal, oropharynx moist, no oral exudates, nose normal. [] Eyes: PERRLA, EOMI, conjunctiva normal, no discharge. Photophobia. [] Neck: Normal range of motion, no tenderness, supple, no stridor. [] Cardiovascular: Heart rate regular rhythm, no murmur [] Lungs & Thorax: Bilateral breath sounds clear to auscultation [] Abdomen: Bowel sounds normal, soft, no tenderness, no masses, no pulsatile masses. [] Skin: Warm, dry, no erythema, no rash. [] Back: No tenderness, no CVA tenderness. [] Extremities: No tenderness, no cyanosis, no clubbing, ROM intact, no edema. [] Neurologic: Alert and oriented X 3, normal motor function, normal sensory function, no focal deficits noted. [] Psychologic: Affect normal, judgement normal, mood normal. [] EKG: EKG: [] Radiology/Procedures: Radiology/Procedures: [] Heart Score: C/O Chest Pain: N/A Risk Factors: Risk Factors: DM, Current or recent (<one month) smoker, HTN, HLP, family history of CAD, obesity. Risk Scores: Score 0 - 3: 2.5% MACE over next 6 weeks - Discharge Home Score 4 - 6: 20.3% MACE over next 6 weeks - Admit for Clinical Observation Score 7 - 10: 72.7% MACE over next 6 weeks - Early Invasive Strategies Course & Med Decision Making: Course & Med Decision Making Pertinent Labs and Imaging studies reviewed. (See chart for details) The patient's labs are unremarkable. For her headache I given her 1 L normal saline, 10 mg Reglan, 25 mg of Benadryl, 30 mg of Toradol. Her headache has improved. She is stable for discharge at this time. [] Dragon Disclaimer: Kathrin Disclaimer: This electronic medical record was generated, in whole or in part, using a voice recognition dictation system. Departure Departure: Impression: Primary Impression: Migraine headache Disposition: HOME / SELF CARE / HOMELESS Condition: IMPROVED Referrals: ZOHAIB LEE APRN (PCP) Patient Instructions: Migraine Headache, [id number] HERMINIA NAIDU DO May 28, 2021 07:37
[2021-05-28] MEDS ORDERED: IV NORMAL SALINE 1,000ML 1,000 ML IV ONE (07:45)
[2021-05-28] MEDS ORDERED: diphenhydrAMINE 50 MG/ML VIAL IVP ONE (07:45)
[2021-05-28] MEDS ORDERED: KETOROLAC 30 MG/ML VIAL. IVP ONE (07:45)
[2021-05-28] MEDS ORDERED: METOCLOPRAMIDE HCL 10 MG/2 ML VIAL. IVP ONE (07:45)
[2021-05-28 08:14] LABS: BASO % 1 % (0-3); EOS # 0.4 x10^3/uL (0.0-0.7); EOS % 4 % (0-3); HEMATOCRIT 44.5 % (36.0-47.0); LYMPH # 3.3 x10^3/uL (1.0-4.8); LYMPH % 34 % (24-48); MEAN CORPUSCULAR HEMOGLOBIN 30 pg (25-35); MEAN CORPUSCULAR HGB CONC 34 g/dL (31-37); MEAN CORPUSCULAR VOLUME 88 fL (79-100); MONO # 0.7 x10^3/uL (0.0-1.1); MONO % 7 % (0-9); NEUT # 5.3 x10^3uL (1.8-7.7); NEUT % 55 % (31-73); PLATELET COUNT 321 x10^3/uL (140-400); RED BLOOD COUNT 5.06 x10^6/uL (3.50-5.40); RED CELL DISTRIBUTION WIDTH 13.3 % (11.5-14.5); WHITE BLOOD COUNT 9.8 x10^3/uL (4.0-11.0)
[2021-05-28 08:22] LABS: CALCIUM 9.4 mg/dL (8.5-10.1); POTASSIUM 3.3 mmol/L (3.5-5.1)
[2021-05-28 08:28] LABS: TOTAL BILIRUBIN 0.4 mg/dL (0.2-1.0); TOTAL PROTEIN 8.2 g/dL (6.4-8.2)
[2021-05-28 08:38] VITALS: BP 102/70
== END 2021-05-28 08:39 | disposition home or self-care (01) ==
LOC: ER 07:16
DX: G43.909 Migraine, unspecified, not intractable, without status migrainosus (principal); Z87.442 Personal history of urinary calculi
CPT/HCPCS: 36415; 80053; 85025; 96361; 96374; 96375; 99284; J1200; J1885; J2765; J7030